=== PATIENT | female | born 1970 | race Caucasian/White ===

== ENCOUNTER 2025-02-24 14:13 | Outpatient (CLI) | payer BC, SELFPAY ==
--- OUTSIDE RECORDS SUMMARY | 2025-02-24 14:21 | XMS_ITS | Clinical Summary ---
Author Organization [facility] Address [address] [place] [address] Care Team Providers Care Market Research Consultant Name Role Phone Ann Torres MD Primary Care Provider [phone] Allergies Active Allergy Reactions Criticality Noted Date Comments Erythromycin Unknown - Patient st ates they do not know rxn details Low 10/11/2017 Romosozumab Unknown - Patient st ates they do not know rxn details Low 02/22/2023 Weakness, joint pain. No change in vitals. Latex Unknown - Patient st ates they do not know rxn details Low 10/22/2017 Sulfacetamide Unknown - Patient st ates they do not know rxn details Low 10/22/2017 Medications Euthyrox 50 MCG tablet Take 1 tablet (50 mcg) by mouth 1 (one) time each day. 10/14/19 22 Active ergocalciferol 1.25 MG (32538 UT) capsule Take 1 capsule (50,000 Units) by mouth 1 (one) time per week. 02/21/20 22 Active clobetasol (Temovate) 0.05 % cream Apply 1 application topically 2 (two) times a day. Active multivitamin (Theragran-M) tablet Take 1 tablet by mouth 1 (one) time each day. 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 Family History Medical History Relation Name Comments Cancer Other 1 Alzheimer's disease Other 2 Cardiac disorder Other 3 Depression Other 4 Breast cancer Other 5 Relation Name Status Comments Other 1 Other 2 Other 3 Other 4 Other 5 Social History Tobacco Use Types Packs/Day Years Used Date Smoking Tobacco: Never Smokeless Tobacco: Never Tobacco Cessation:Counseling Given: Not Answered Alcohol Use Standard Drinks/Week Comments No 0 (1 standard drink = 0.6 oz pur e alcohol) PHQ-2 Answer Date Recorded Patient Health Questionnaire-2 Score 0 11/22/2022 PHQ-2A Answer Date Recorded Patient Health Questionnaire-2 Score 0 11/22/2022 Comments Unknown Sex and Gender Information Value Date Recorded Sex Assigned at Not on file Legal Sex Female 7:36 PM EDT Gender Identity Not on file Sexual Orientation Not on file Last Filed Vital Signs Vital Sign Reading Time Taken Comments Blood Pressure 89/57 04/17/2023 10:18 AM EDT Pulse 75 04/17/2023 10:18 AM EDT Temperature 36.4 C (97.5 F) 11/22/2022 11:03 AM EDT Respiratory Rate 18 04/17/2023 10:18 AM EDT Oxygen Saturation 98% 04/17/2023 10:18 AM EDT Inhaled Oxygen Concentration - - Weight 44 kg (97 lb) 08/31/2023 8:10 AM EST Height 157.5 cm (5' 2 ) 08/31/2023 8:10 AM EST Body Mass Index 17.74 08/31/2023 8:10 AM EST Plan of Treatment Health Maintenance Due Date Last Done Comments [facility]-HIV Screening 1972 [facility]-Hepatitis C Screening 1972 [facility]-/Child/Adol SDOH Screenings 1972 [id number] Vaccine (#1) 1977 [facility]- SDOH Screenings 1990 [facility]-Adult SDOH Screenings 1990 [facility]-DTaP,Tdap,and Td Vaccine s (1 - Tdap) 12/18/1991 [facility]-Hepatitis B Vaccines (1 of 3 - 19+ 3-dose series) 12/18/1991 [facility]-Pap Smear 06/08/2008 06/08/2005, 10/10/1997 [facility]-Cervical Cancer Screening 06/08/2010 [facility]-HPV/Cotest 06/08/2010 06/08/2005, 10/10/1997 CT Colonography 2017 Colonoscopy 2017 FIT-DNA 2017 FIT 2017 FOBT 2017 Sigmoidoscopy 2017 [facility]-Colorectal Cancer Screening 2017 [facility]-Breast Cancer Screening 2022 [facility]-Pneumococcal Vaccine: 50 + Years (1 of 1 - PCV) 2022 [facility]-Zoster Vaccines (1 of 2) 2022 [facility]-Depression Screening 11/23/2023 11/22/2022 [facility]-Bone Density Scan 04/17/2024 04/17/2023 [facility]-Influenza Vaccine (#1) 2025 HPV Vaccines Aged Out No longer eligi ble based on patient's age to complete this topic [facility]-HIB Vaccines Aged Out No longer e ligible based on patient's age to complete this topic [facility]-Hepatitis A Vaccines Aged Out No longer eligible based on patient's age to complete this topic [facility]-IPV Vaccines Aged Out No longer e ligible based on patient's age to complete this topic [facility]-Rotavirus Vaccines Aged Out No lo nger eligible based on patient's age to complete this topic Procedures Procedure Name Priority Date/Time Associated Diagnosis Comments DEXA BONE DENSITY Routine 04/17/2023 10: 11 AM EDT Age-related osteoporosis without current pathological fracture CYTO DATA CONVERSION Routine 06/08/2005 12:00 AM EST from Last 3 Months or Most Recently Relevant to Health Maintenance Results * Dexa Bone Density (04/17/2023 10:11 AM EDT) Anatomical Region Laterality Modality L-spine Radiographic Maryann ging Narrative 04/23/2023 8:52 PM EDT [facility] - Nephrology, Bone & Mineral Metabolism [address] [address], [place] [address] DXA Bone Densitometry Report: [04/17/2023] Subjective BMD test performed using the magnetU DXA System (analysis version: 14.10) manufactured by [employer]. REFERRING PROVIDER: Dr. Rock, Dimas Barker MD CLINICAL INFORMATION: osteoporosis PATIENT NAME: Mami Barahona PATIENT AGE: 52 y.o. LEGAL SEX: female RADIOGRAPHIC VIEWS: Sites scanned: AP Spine, HIP Right , and HIP Left COMPARISON STUDY: DXA Axial Prior studies are not available for comparison. FINDINGS: Based on WHO criteria (post-menopausal female) the diagnosis is Osteoporosis The lowest T- score is -3.3 in the RFN TREATMENT RECOMMENDATIONS: Measured bone density crosses threshold for treatment of osteoporosis Specific anti-osteoporotic therapy remains indicated given high risk of future fracture Patient has received specific treatment for osteoporosis in the last year. Work up for secondary osteoporosis and metabolic bone disease could be considered based on clinical indications. Treatment decisions may be based on clinical considerations. Suggest general measures to optimize calcium and vitamin D status, fall prevention measures and reduce fracture risk. Consider repeating this study in 1 year(s) or as clinically indicated to assess bone density change or response to treatment (should be performed on the same DXA scanner to allow for direct comparison and calculation of change in BMD). \ us Dimas Rock MD IMG DXA PROCEDURES Final Resu lt * Cytology (06/08/2005 12:00 AM EST) 06/08/2005 06/13/2005 Narrative SUNQUEST - 06/21/2005 3:29 PM EST [facility] MR #: [id number] [facility] MAMI BAR[place] [place] [address] 1970 (Age: 34) FW Collect Date: 06/08/2005 00:00 Receipt Date: 06/13/2005 00:00 Page 1 DEPARTMENT OF PATHOLOGY AND LABORATORY MEDICINE CYTOPATHOLOGY REPORT Email: [email or web address] [id number] ATTENDING MD/Practitioner: Mariza Gomes MD Service: PAT Location: OUTS Reported: 06/21/2005 15:29 Collected: 06/08/2005 00:00 INTERPRETATION THIN PREP (CERVICAL/VAGINAL): NEGATIVE FOR INTRAEPITHELIAL LESION OR MALIGNANCY. INFLAMMATORY CHANGE. SATISFACTORY FOR EVALUATION; ENDOCERVICAL/ TRANSFORMATION ZONE COMPONENT PRESENT. Slide scanned and imaged by [employer] ThinPrep Imaging System with manual review of all selected alexander. Cervical/vaginal cytology is a screening test primarily for squamous cancers and precursors and has associated false negative and positive results. New technologies such as liquid based sampling may decrease but will not eliminate all false negative results. Regular screening and follow-up of unexplained clinical signs and symptoms are recommended to minimize false negative results. Electronically Signed Out LEANDRA Austin(ASCP) Wade Noel MD. Cervical cytology is a screening test primarily for squamous cancers and precursors and has associated false negative and positive results. New technologies such as liquid based sampling may decrease but will not eliminate all false negative results. Regular screening and follow-up of unexplained clinical signs and symptoms are recommended to minimize false negative results. Please see the ASCCP website (www.asccp.org) for followup recommendations. If HPV testing was requested, correlation with the results is suggested (please call Microbiology at [phone] for results). CLINICAL INFORMATION: Menstrual History: Amenorrhea Date of Last Menstrual Period: {Not Provided} SPECIMEN DESCRIPTION: A: THIN PREP (CERVICAL/VAGINAL) THIN PREP PROCESS CELLULAR ENHANCEMENT ICD: V76.2 CERVIX, SPECIAL SCREENING FOR MALIGNANT NEOPLASM F: A; RT IMAGE [id number], [id number] C\V (PO) SNOMED CODES: A; [id number] In cases where a pathologist has signed out the report, the service has been rendered in part by a resident. The signing pathologist has performed and is responsible for the reported pathologic evaluation. us Historical Provider MD LAB PATHOLOGY ORDERABLES Final Result SUNQUEST from Last 3 Months or Most Recently Relevant to Health Maintenance Insurance ANTHEM Care Teams Market Research Consultant Relationship Specialty Start Date End Date Ann Torres MD [address] [place], [place] [id number] PCP - General 05/06/22
--- OUTSIDE RECORDS SUMMARY | 2025-02-24 14:21 | XMS_ITS | Clinical Summary ---
Author Organization [employer] ([place], [place], [place], [place]) Address [address] [place] [address] Care Team Providers Care Drywall Stripper Name Role Phone Ann Torres MD Primary Care Provider [phone] Allergies Active Allergy Reactions Criticality Noted Date Comments Erythromycin 02/09/2023 Iodinated Contrast Media 02/09/2023 Latex 02/09/2023 Sulfa (Sulfonamide Antibiotics) 01/28 Topiramate 02/09/2023 Active Problems Problem Noted Date Diagnosed Date Osteoporosis, post-menopausal 02/09/2023 Social History Tobacco Use Types Packs/Day Years Used Date Smoking Tobacco: Never Assessed Food Insecurity Answer Date Recorded Food run out past 12 months Not on file 09/29 Food did not last past 12 months Not on file 10/19/2023 Employment Answer Date Recorded Help finding and keeping a job Not on file 0 10/19/2023 Family and Community Support Answer [place] e Recorded Help with Day to Day Activities Not on file 10/19/2023 Feeling Lonely or Isolated Not on file 10/18 Educational Attainment Answer Date Wojciech rded Speak language other than Serbian at home Not on file 10/19/2023 Want help with school or training Not on file 10/19/2023 Substance Use Answer Date Recorded Used prescription meds for non-medical reasons N ot on file 10/19/2023 Used illegal drugs past 12 months Not on file 10/19/2023 Comments Unknown Sex and Gender Information Value Date Recorded Sex Assigned at Not on file Legal Sex Female 4:41 PM CDT Gender Identity Not on file Sexual Orientation Not on file Last Filed Vital Signs Vital Sign Reading Time Taken Comments Blood Pressure 110/68 02/09/2023 2:37 PM EDT Pulse 70 02/09/2023 2:37 PM EDT Temperature 36.7 C (98.1 F) 02/09/2023 2:37 PM EDT Respiratory Rate 16 02/09/2023 2:37 PM EDT Oxygen Saturation 100% 02/09/2023 2:37 PM EDT Inhaled Oxygen Concentration - - Weight 44.5 kg (98 lb) 02/09/2023 1:34 PM EDT Height 157.5 cm (5' 2 ) 02/09/2023 1:34 PM EDT Body Mass Index 17.92 02/09/2023 1:34 PM EDT Plan of Treatment Not on file Insurance BLUE CROSS/BLUE SHIELD Care Teams Drywall Stripper Relationship Specialty Start Date End Date Ann Torres MD [facility] [address] [place] [id number] PCP - General Family Medicine 02/09/23
--- OUTSIDE RECORDS SUMMARY | 2025-02-24 14:21 | XMS_ITS | Encounter Summary ---
Author Organization [employer] ([place], [place], [place], [place]) Address [address] [place] [address] Care Team Providers Care Training And Documentation Specialist Name Role Phone Ann Torres MD Primary Care Provider [phone] Encounter Details Date Type Department Care Team (Late st Contact Info) Description 10/20/[address] [facility] ([place], [place]) Central Scheduling [address] [place] [address] Viviana Cruz APRN [address] [place] [address] Abdominal pain, unspecified abdominal location (Primary Dx) Social History Tobacco Use Types Packs/Day Years [...] Date Wojciech rded Speak language other than Slovak at home Not on file 10/19/2023 Want [...] on file Sexual Orientation Not on file documented as of this encounter Plan of Treatment Not on file documented as of this encounter Visit Diagnoses Diagnosis Abdominal pain, unspecified abdominal location- Primary documented in this encounter Care Teams Training And Documentation Specialist Relationship Specialty Start Date End Date Ann Torres MD [address] [facility] [place] [address] PCP - General Family Medicine 02/09/23 documented as of this encounter
--- OUTSIDE RECORDS SUMMARY | 2025-02-24 14:21 | XMS_ITS | Patient Health Record ---
Author Organization [facility] Address [address] [facility] [address] [place] [address] Care Team Providers Care Audiology Assistant Name Role Phone Esperanza Mauro Unavailable [phone] Reason For Referral No Information Social History Social History Additional Details Category Social Info Options Details Miscellaneous: Caffeine: CAFFEINE USE: 1 Plan Of Treatment No Information Medical (General) History Medical History History ICD Code Infertility Irritable Bowel Osteoporosis
--- OUTSIDE RECORDS SUMMARY | 2025-02-24 14:21 | XMS_ITS | Encounter Summary ---
Author Organization [employer] ([place], [place], [place], [place]) Address [address] [place] [address] Care Team Providers Care Health Information Technician Name Role Phone Ann Torres MD Primary Care Provider [phone] Encounter Details Date Type Department Care Team (Late st Contact Info) Description 10/19/2023 Outside Orders [facility] Central Scheduling [address] [place] [address] Viviana Cruz APRN [address] [place] [address] Abdominal pain, unspecified abdominal location [...] Date Wojciech rded Speak language other than Fijian at home Not on file 10/19/2023 Want [...] Primary documented in this encounter Care Teams Health Information Technician Relationship Specialty Start Date End Date Ann Torres MD [address] [facility] [place] [address] PCP - General Family Medicine 02/09/23 documented as of this encounter
--- OUTSIDE RECORDS SUMMARY | 2025-02-24 14:21 | XMS_ITS | Referral Summary ---
Author Organization [employer] ([place], [place], [place], [place]) Address [address] [place] [address] Care Team Providers Care Altitude Chamber Technician Name Role Phone Ann Torres MD Primary Care Provider [phone] Allergies Active Allergy Reactions Criticality Noted Date [...] Date Wojciech rded Speak language other than Japanese at home Not on file 10/19/2023 Want [...] file Insurance BLUE CROSS/BLUE SHIELD Care Teams Altitude Chamber Technician Relationship Specialty Start Date End Date Ann Torres MD [facility] [address] [place] [id number] PCP - General Family Medicine 02/09/23
--- OUTSIDE RECORDS SUMMARY | 2025-02-24 14:21 | XMS_ITS | Clinical Summary ---
Author Organization [facility] Address [address] [place] [address] Care Team Providers Care Meat Dresser Name Role Phone Ann Torres MD Primary Care Provider [phone] Allergies Active Allergy Reactions Criticality Noted Date Comments Contrast Dye (Echo Or Unknow n Ct/Mr) Rash Low 08/31/2022 Erythromycin Unknown (See Comments) Low 10/11/2017 Latex Unknown (See Comments) Low 10/22/2017 Sulfacetamide Unknown (See Comments) Low 10/22/2017 Topiramate Seizure High 08/31/2022 Medications Euthyrox 50 MCG tablet Take 50 mcg by mouth Daily. 3 Active clobetasol (TEMOVATE) 0.05 % cream As Needed. 3 Active triamcinolone (KENALOG) 0.1 % cream Apply 1 application topically to the appropriate area as directed As Needed. Active vitamin D (ERGOCALCIFEROL ) 1.25 MG (34414 UT) capsule capsule Take 50,000 Units by mouth 1 (One) Time Per Week. Active multivitamin with minerals (MULTIVITAMIN ADULT PO) Take 1 tablet by mouth Daily. Active Active Problems Problem Noted Date Diagnosed Date Acquired hypothyroidism 05/20/2022 Vitamin D deficiency 05/20/2022 Arthralgia 05/06/2022 Osteoporosis 05/06/2022 Family History Medical History Relation Name Comments Other Brother spastic paresis Heart failure Father Cancer Maternal Grandmother Cancer Mother Osteoporosis Mother Bipolar disorder Sister Relation Name Status Comments Brother Father Maternal Grandmother Mother Sister Social History Tobacco Use Types Packs/Day Years Used Date Smoking Tobacco: Never Tobacco Cessation:Counseling Given: Not Answered Alcohol Use Standard Drinks/Week Comments Never 0 (1 standard drink = 0.6 oz pur e alcohol) Abuse Screen Answer Date Recorded Unsafe at Home or Work/School Not on file Feels Threatened by Someone? Not on file 03/2023 Does Anyone Keep You from Co ntacting Others or Doint Things Outside the Home? Not on file 05/08/2023 Physical Sign of Abuse Present Not on file 1 Housing Stability Answer Date Recorded Current Living Arrangements Not on file 03/2023 Potentially Unsafe Housing Conditions Not on leonid e 05/08/2023 Family and Community Support Answer [place] e Recorded Help with Day-to-Day Activities Not on file 05/08/2023 Lonely or Isolated Not on file 05/08/2023 Employment Answer Date Recorded Do you want help finding or keeping work or a brook b? Not on file 05/08/2023 Disabilities Answer Date Recorded Concentrating, Remembering, or Making Decisions Difficulty Not on file 05/08/2023 Doing Errands Independently Difficulty Not on fi le 05/08/2023 Education Answer Date Recorded Help with school or training? Not on file Preferred Language Not on file 05/08/2023 Comments Unknown Sex and Gender Information Value Date Recorded Sex Assigned at Not on file Legal Sex Female 10:28 AM EDT Gender Identity Not on file Sexual Orientation Not on file Last Filed Vital Signs Vital Sign Reading Time Taken Comments Blood Pressure 102/62 08/31/2022 2:34 PM EST Pulse 79 08/31/2022 2:34 PM EST Temperature - - Respiratory Rate - - Oxygen Saturation 96% 08/31/2022 2:34 PM EST Inhaled Oxygen Concentration - - Weight 45.6 kg (100 lb 9.6 oz) 08/31/2022 2:34 P M EST Height 157.5 cm (5' 2 ) 08/31/2022 2:34 PM EST Body Mass Index 18.4 08/31/2022 2:34 PM EST Plan of Treatment Health Maintenance Due Date Last Done Comments Annual Gynecologic Pelvic and Breast Exam 1972 TDAP/TD VACCINES (1 - Tdap) 12/18/1991 MAMMOGRAM 2012 COLOGUARD 2017 COLON CANCER SCREENING 5 YEAR SIGMOIDOSCOPY 2017 COLONOSCOPY [address] CANCER SCREENING [address] CT COLONOGRAPHY 2017 FECAL OCCULT BLOOD TEST 2017 FIT Testing (1 year) 2017 ANNUAL PHYSICAL 08/31/2022 HEPATITIS C SCREENING 08/31/2022 Pneumococcal Vaccine 50+ (1 of 1 - PCV) 2022 ZOSTER VACCINE (1 of 2) 2022 COVID-19 Vaccine (1 - 2023- season) 2024 INFLUENZA VACCINE 04/30/2025 [place] [address] Care Teams Meat Dresser Relationship Specialty Start Date End Date Ann Torres MD [address] [place] [address] [facility] [address] [place] [address] PCP - General Internal Medicine 08/31/22
--- NOTE | 2025-02-24 14:31 | XR_ITS ---
FINAL REPORT CLINICAL HISTORY: left foot pain FINDINGS: AP, oblique and lateral views of the left foot were obtained. There is no acute fracture or dislocation. The joint spaces are preserved. Soft tissues are unremarkable. IMPRESSION: No acute osseous abnormality of the left foot. Reviewed, Interpreted and Dictated by Antoinette Eubanks MD Transcribed by LORI Rodriguez Authenticated and [facility]
== END 2025-02-24 23:59 | disposition home or self-care (01) ==
LOC: RAD 14:18
PROVIDERS: Visit Provider Physician Assistant Surgical
DX: M79.672 Pain in left foot (principal)
CPT/HCPCS: 73630